=== PATIENT | male | born 1995 | race Caucasian/White ===

== ENCOUNTER 2019-01-07 22:31 | Emergency (ER) | payer OTHER, SELFPAY ==
--- NOTE | 2019-01-07 23:01 | DI.RAD.S_ITS ---
PROCEDURE: XR SHOULDER RT MIN 2V INDICATIONS: fell down 10 stairs, thinks dislocated TECHNIQUE: 3 views of the shoulder were acquired. COMPARISON: None. FINDINGS: Bones: No fractures or dislocations. The acromioclavicular joint appears mildly incongruent. No suspicious bony lesions. Visualized ribs appear intact. Soft tissues: No suspicious soft tissue calcifications. No definite periarticular soft tissue swelling at the acromioclavicular joint. IMPRESSION: 1. No fracture or dislocation. 2. Mildly incongruent appearance of the acromioclavicular joint may represent a mild sprain. However, given the relative paucity of associated soft tissue swelling, this may represent a normal variant. Recommend correlation with clinical exam. Final interpretation discussed with Dr. Matson on 01/08/19 at 9:20 AM. Dictated by: Benjamin Bettencourt M.D. on 01/08/2019 at 9:16 Approved by: Benjamin Bettencourt M.D. on 01/08/2019 at 9:21
[2019-01-07 23:03] VITALS: BP 132/87; PULSE 84; RESP 16; TEMP 37.2; O2SAT 100; BMI 27.8
--- NOTE | 2019-01-07 23:33 | ED.UPPEXIN ---
HPI - Extremity Injury (Upper) General Chief Complaint: Extremity Injury, Upper Stated Complaint: Shoulder Pain- thinks dislocated Time Seen by Provider: 01/07/19 23:02 Source: patient Mode of arrival: Ambulatory Limitations: no limitations History of Present Illness HPI narrative: Patient is a 23-year-old male who presents with right shoulder pain. He thinks it is dislocated. He says he tripped over a box and fell down stairs. He landed directly on his shoulder. He might be dislocated although he is able to move it. He has no numbness or tingling it just hurts whenever he touches it. He denies any head injury or neck pain. He is right-hand dominant MD complaint: injury to: right and shoulder Onset (ago): hour(s) Related Data Allergies Allergy/AdvReac Type Severity Reaction Status Date / Time No Known Drug Allergies Allergy Verified 01/07/19 23:06 Review of Systems Review of Systems Narrative: GENERAL: Denies chills,fever HEENT: Denies throat pain RESPIRATORY: Denies dyspnea, cough, wheezing CARDIOVASCULAR: Denies chest pain, palpitations GASTROINTESTINAL: Denies nausea, vomiting MUSCULOSKELETAL: See HPI SKIN: No rash, no laceration, no pruritus NEUROLOGIC: Denies weakness, dizziness, headache, numbness 8 point review of systems is negative except for those stated above and HPI Patient History Medical History Patient denies medical problems (Acute) Social History Smoking Status: Current some day smoker Social History Smoking Status: Current some day smoker tobacco type: cigarettes alcohol intake frequency: a few times a week Substance Use Type: does not use Exam Initial Vital Signs Initial Vital Signs: Vital Signs Temperature 98.9 F 01/07/19 23:03 Pulse Rate 84 01/07/19 23:03 Respiratory Rate 16 01/07/19 23:03 Blood Pressure 132/87 01/07/19 23:03 Pulse Oximetry 100 01/07/19 23:03 GENERAL: Well-appearing, well-nourished and in no acute distress. CARDIOVASCULAR: peripheral pulses in tact, cap refill <2 sec RESPIRATORY: No respiratory distress, speaks in full sentences without difficulty EXTREMITIES: Normal range of motion, no clubbing or edema. Neurovascularly intact right shoulder also slightly tender to touch no gross bony deformities no deformity or step-off on clavicle. He is able to fully abduct his arm above his head without any difficulty. Sensation over the deltoid intact peripheral pulses intact NEUROLOGICAL: Cranial nerves II through XII grossly intact. Normal gait and speech. SKIN: Warm, dry, no petechiae, no rashes or lesions. Course Orders Ordered: ED Orders 01/07/19 23:01 XR shoulder RT min 2V Stat Vital Signs Vital signs: Vital Signs - 8 hr 01/07/19 23:03 Temperature 98.9 F Pulse Rate 84 Respiratory Rate 16 Blood Pressure 132/87 Pulse Oximetry 100 MDM - Extremity Injury (Upper) Imaging Data Right shoulder x-ray: Attestation: I personally reviewed and interpreted this imaging study as follows: My impression: No dislocation no fracture MDM Narrative Medical decision making narrative: The patient is able to move his arm easily in all directions. It is slightly tender to touch. This more likely a sprain or contusion. At this time I recommend conservative management if still having pain then he may need an MRI but at a much later date. I have explained this at length to patient who is worried that he may have a ligamentous injury. He is fully able to abduct and rotate shoulder without difficulty. Discharge Plan Departure Patient Disposition: Home Clinical Impression: Sprain of right shoulder Qualifiers: Encounter type: initial encounter Shoulder sprain type: unspecified sprain Qualified Code(s): S43.401A - Unspecified sprain of right shoulder joint, initial encounter Discharge Date/Time: 01/07/19 23:46 Instructions: DI for Shoulder Sprain Activity Restrictions/Additional Instructions: *You have been diagnosed with right shoulder sprain *What to do: Increase activity as tolerated. Ice. Try to move shoulder a little bit but no aggressive her strenuous activity. You may require MRI if her still having pain in 1 month *Continue to take medications as directed Ibuprofen 800 mg every 8 hours if needed for pain with food for 1 week *Follow up with your primary care provider in 2-3 days *Return to ER if you should have increasing pain, weakness, numbness, tingling or any new, worsening or concerning symptoms
== END 2019-01-07 23:46 | disposition home or self-care (01) ==
PROVIDERS: Emergency Provider Emergency Medicine
DX: S43.401A Unspecified sprain of right shoulder joint, initial encounter (principal); W10.8XXA Fall (on) (from) other stairs and steps, initial encounter
CPT/HCPCS: 73030; 99282; 99283

== ENCOUNTER 2020-05-14 08:46 | Emergency (ER) | payer OTHER, SELFPAY ==
[2020-05-14 08:55] VITALS: BP 139/65; PULSE 73; RESP 18; TEMP 36.3; O2SAT 99; BMI 27.8
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
[2020-05-14 10:05] VITALS: BP 133/72; PULSE 72; O2SAT 99
== END 2020-05-14 10:06 | disposition home or self-care (01) ==
PROVIDERS: Emergency Provider Emergency Medicine
DX: S41.152A Open bite of left upper arm, initial encounter (principal); Y04.1XXA Assault by human bite, initial encounter
CPT/HCPCS: 99281